=== PATIENT | female | born 1945 | race Caucasian/White ===

== ENCOUNTER 2021-02-13 02:43 | Inpatient (IN) | payer OTHER, MEDICAID ==
[~2021-02-13] VITALS: Ht 157.5 cm; Wt 89.4 kg
[2021-02-13] VITALS (7 sets, daily range): BP systolic 110–128; BP diastolic 48–68
[2021-02-13] MEDS ORDERED: METFORMIN HCL500 M3 PO (02:52)
[2021-02-13] MEDS ORDERED: DOCUSATE SODIU100 MG PO (02:53)
[2021-02-13] MEDS ORDERED: ASA81BEC PO (02:53)
[2021-02-13] MEDS ORDERED: CRANBERRY450 M2 PO (02:54)
[2021-02-13] MEDS ORDERED: VITAMIN D3-ALO1 EACH PO (02:54)
[2021-02-13] MEDS ORDERED: VITAMIN B12-FO1 EAC1 PO (02:55)
[2021-02-13] MEDS ORDERED: IRON325 M1 PO (02:55)
[2021-02-13] MEDS ORDERED: CELEBREX 200 M200 MG PO (02:55)
[2021-02-13] MEDS ORDERED: LYRICA 75 MG CA75 MG PO (02:56)
[2021-02-13] MEDS ORDERED: OMEPRAZOLE 20 M20 M1 PO (02:56)
[2021-02-13] MEDS ORDERED: FLEXERIL PO (02:56)
[2021-02-13] MEDS ORDERED: CELEXA 10 MG TA10 M1 PO (02:57)
[2021-02-13] MEDS ORDERED: TRAMADOL 50 MG50 MG PO (02:57)
[2021-02-13] MEDS ORDERED: LEVO-T100 MCG PO (02:57)
[2021-02-13 03:23] LABS: ABSOLUTE BASOPHILS 0.1 thou/uL (0.0-0.2); ABSOLUTE EOSINOPHILS 0.5 thou/uL (0.0-0.7); ABSOLUTE LYMPHOCYTES 1.6 thou/uL (0.8-5.3); ABSOLUTE MONOCYTES 0.7 thou/uL (0.0-1.2); ABSOLUTE NEUTROPHILS 4.2 thou/uL (1.6-8.1); EOSINOPHILS 6.5 %; HEMATOCRIT 34.1 % (37.0-47.0); HEMOGLOBIN 11.6 gm/dL (12.0-15.0); LYMPHOCYTES 22.1 %; MCH 28.6 pg (26.0-34.0); MCHC 34.1 g/dL (28.0-37.0); MCV 84.1 fL (80.0-100.0); MONOCYTES 10.4 %; MPV 7.5 fl. (7.2-11.1); NUCLEATED RBCS 0 /100WBC; PLATELET COUNT* 281 thou/uL (150-400); RBC 4.05 mil/uL (4.20-5.00); WBC 7.1 thou/uL (4.0-11.0)
[2021-02-13 03:34] LABS: CALCIUM 8.5 mg/dL (8.5-10.1)
[2021-02-13 03:39] LABS: ALBUMIN 3.6 g/dL (3.4-5.0); TOTAL BILIRUBIN 0.3 mg/dL (<0.1-1.0); TOTAL PROTEIN 7.1 g/dL (6.4-8.2)
[2021-02-13 04:00] LABS: URINE BILIRUBIN NEGATIVE (Negative); URINE BLOOD 1+ (Negative); URINE COLOR YELLOW; URINE GLUCOSE-RANDOM NEGATIVE (Negative); URINE KETONES NEGATIVE (Negative); URINE NITRITE-REFLEX NEGATIVE (Negative); URINE PROTEIN 1+ (Negative); URINE SPECIFIC GRAVITY 1.015 (1.005-1.030); URINE UROBILINOGEN 0.2 E.U./dl (0.2-1.0)
[2021-02-13 04:05] LABS: URINE CLARITY SL HAZY; URINE LEUKOCYTES-REFLEX 3+ (Negative)
[2021-02-13 04:12] LABS: BACTERIA-REFLEX >30 Many /HPF (None Seen); CASTS None Seen /LPF (None Seen); CRYSTALS None Seen /LPF (None Seen); MUCUS 0-3 Light strn/LPF (None Seen); SQUAMOUS 0-3 Few /LPF (0-3); URINE WBC-REFLEX >25 Many /HPF (0-5); WBC CLUMPS Moderate (None Seen)
--- NOTE | 2021-02-13 10:35 | EKG ---
[place] [address] ELECTROCARDIOGRAM REPORT Name: RANDY DEGROOT Room: [place] [address] ADM IN .R.#: [id number] Admission: 02/13/21 Attend Phys: Aníbal Mariscal Discharge: Date of : 47 Date of Service: 02/13/21 0316 Report #: [id number] THIS REPORT FOR: //name// [facility] ED Test Date: 2021-02-13 Test Time: 03:16:50 Pat Name: RANDY DEGROOT Department: Room: [facility] Gender: F Shank Tapper: [place] : 1945 Requested By: Noemi Truong Order Number: [id number] MD: Bj Caldwell Measurements Intervals [place] Rate: 69 P: 52 AL: 142 QRS: -22 QRSD: 89 T: 34 QT: 398 QTc: 427 Interpretive Statements Sinus rhythm Borderline left axis deviation Low voltage, precordial leads Abnormal R-wave progression, early transition No previous ECG available for comparison Electronically Signed On 02-13-2021 10:35:30 CDT by Bj Caldwell [email or web address] <ELECTRONICALLY SIGNED> By: Bj Caldwell MD, FAC 02/13/21 1035 5 Bj Caldwell MD, [facility] /EPI
[2021-02-14] VITALS: BP 106/41
[2021-02-14 11:53] VITALS: BP 108/48
[2021-02-14 15:45] VITALS: BP 111/49
[2021-02-14 20:00] VITALS: BP 115/53
[2021-02-14 23:30] VITALS: BP 105/46
[2021-02-15 04:35] VITALS: BP 118/49
[2021-02-15 08:00] VITALS: BP 112/45
[2021-02-15 16:00] VITALS: BP 121/64
[2021-02-15 20:00] VITALS: BP 109/47
[2021-02-16 08:30] VITALS: BP 121/50
[2021-02-16 16:24] VITALS: BP 118/59
[2021-02-16 20:00] VITALS: BP 127/70
[2021-02-17 08:53] VITALS: BP 143/58
[2021-02-17] MEDS ORDERED: METFORMIN HCL500 MG PO (09:15)
[2021-02-17] MEDS ORDERED: TRAMADOL 50 MG50 MG PO (09:15)
[2021-02-17] MEDS ORDERED: MACROBID 100 M100 MG PO (09:15)
[2021-02-17 16:58] VITALS: BP 122/62
[2021-02-17 19:45] VITALS: BP 114/53
[2021-02-18 08:30] VITALS: BP 119/65
[2021-02-18 15:43] VITALS: BP 117/60
== END 2021-02-18 17:40 | DRG 690 ==
LOC: M.ERS 02:43 → M.TBA-ER 05:04 → M.3W 05:04
PROVIDERS: Personal Emergency Response Attendant; ADMIT Internal Medicine; ATTEND Internal Medicine
DX: N39.0 Urinary tract infection, site not specified (principal); R65.10 Systemic inflammatory response syndrome (SIRS) of non-infectious origin without acute organ dysfunction; Z20.822 Contact with and (suspected) exposure to COVID-19; E03.9 Hypothyroidism, unspecified; M19.90 Unspecified osteoarthritis, unspecified site; B96.89 Other specified bacterial agents as the cause of diseases classified elsewhere; E11.9 Type 2 diabetes mellitus without complications; I87.8 Other specified disorders of veins; M79.7 Fibromyalgia; M25.551 Pain in right hip; R20.2 Paresthesia of skin; Z88.0 Allergy status to penicillin; Z88.6 Allergy status to analgesic agent; Z91.040 Latex allergy status; Z87.891 Personal history of nicotine dependence; W18.39XA Other fall on same level, initial encounter; Y93.89 Activity, other specified; Y92.098 Other place in other non-institutional residence as the place of occurrence of the external cause; Y99.8 Other external cause status; Z79.82 Long term (current) use of aspirin; Z79.899 Other long term (current) drug therapy; Z23 Encounter for immunization